=== PATIENT | female | born 1995 | race Caucasian/White ===

== ENCOUNTER 2021-10-23 14:56 | Emergency (ER) | payer BC, SELFPAY ==
[~2021-10-23] VITALS: Ht 162.6 cm; Wt 100.0 kg
[~2021-10-23 14:56] MED LIST: CYCL-1 PO
[2021-10-23] MEDS ORDERED: ondansetron 4mg rapidly disintigrating tab PO ONE (16:10)
[2021-10-23 16:38] VITALS: BP 129/83
[2021-10-23 16:46] LABS: BASOPHILS % (AUTO) 0.4 % (0-1); EOSINOPHILS % (AUTO) 0.5 % (0-6); HEMATOCRIT 44.8 % (35.0-45.0); HEMOGLOBIN 15.2 g/dl (12.0-16.0); LYMPHOCYTES # (AUTO) 1.6 X10'3 (1.1-4.8); LYMPHOCYTES % (AUTO) 20.3 % (21-51); MEAN CORPUSCULAR HEMOGLOBIN 30.8 PG (27.0-31.0); MEAN CORPUSCULAR VOLUME 90.6 FL (78-98); MEAN PLATELET VOLUME 8.7 FL (7.4-10.4); MONOCYTES # (AUTO) 0.6 X10'3 (0-0.9); NEUTROPHILS # (AUTO) 5.7 X10'3 (1.8-7.7); NEUTROPHILS % (AUTO) 71.8 % (42-75); PLATELET COUNT 279 X10'3 (140-440); RED BLOOD COUNT 4.94 X10'6 (4.20-5.60); RED CELL DISTRIBUTION WIDTH 13.1 % (11.5-14.5); WHITE BLOOD COUNT 7.9 X10'3 (4.5-11.0)
[2021-10-23 16:59] LABS: ALANINE AMINOTRANSFERASE 32 U/L (12-78); ALBUMIN 3.8 G/DL (3.4-5.0); ALBUMIN/GLOBULIN RATIO 0.9 (1.1-1.5); ALKALINE PHOSPHATASE 79 IU/L (46-116); ANION GAP 10 (8-16); ASPARTATE AMINO TRANSFERASE 17 U/L (10-37); BILIRUBIN,TOTAL 0.5 MG/DL (0.1-1.0); BLOOD UREA NITROGEN 7 MG/DL (7-18); BUN/CREATININE RATIO 9.1 (6.6-38.0); CALCIUM 8.9 MG/DL (8.5-10.1); CHLORIDE 104 MMOL/L (99-107); CREATININE 0.77 MG/DL (0.40-0.90); GLUCOSE 105 MG/DL (70-104); POTASSIUM 3.8 MMOL/L (3.5-5.1); SODIUM 137 MMOL/L (135-145); eGFR > 90 ML/MIN
[2021-10-23] MEDS ORDERED: acetaminophen 325mg tablet PO ONE (17:10)
[2021-10-23] MEDS ORDERED: ONDA4TAB12 PO (17:44)
--- NOTE | 2021-10-23 18:22 | NUR ---
Pt given and understands d/c instructions. Ambulatory with a steady gait.
== END 2021-10-23 18:22 | disposition home or self-care (01) ==
LOC: ER 14:57
DX: R11.2 Nausea with vomiting, unspecified (principal); Z20.822 Contact with and (suspected) exposure to COVID-19; R51.9 Headache, unspecified; R10.84 Generalized abdominal pain; Z79.899 Other long term (current) drug therapy
CPT/HCPCS: 36415; 80053; 85025; 87635; 99283; C9803

== ENCOUNTER 2021-10-26 13:37 | Emergency (ER) | payer BC ==
[~2021-10-26] VITALS: Ht 162.6 cm; Wt 89.0 kg
[~2021-10-26 13:37] MED LIST changes: +ONDA4TAB12 PO
[2021-10-26 13:49] VITALS: BP 122/75
[2021-10-26 14:14] LABS: CLARITY,URINE SLIGHTLY CLOUDY (Clear); COLOR,URINE YELLOW (Yellow); GLUCOSE, URINE NEGATIVE (Neg); KETONES,URINE NEGATIVE (Neg); LEUKOCYTE ESTERASE ,URINE MODERATE (Neg); NITRITES, URINE NEGATIVE (Neg); OCCULT BLOOD,URINE NEGATIVE (Neg); PH,URINE 8.5 (4.8-8.0); PROTEIN,URINE NEGATIVE (Neg)
[2021-10-26 14:15] LABS: URINE HCG NEGATIVE (NEG)
[2021-10-26 14:17] LABS: UA COLLECTION TYPE CLN CATCH MIDSTREAM
[2021-10-26 14:21] LABS: BACTERIA,URINE 4+ /HPF (Neg); RBC,URINE 0-2 /HPF (0-2); SQUAMOUS EPITHELIAL CELL,UR MANY /LPF (FEW); WBC,URINE 30-50 /HPF (0-4)
[2021-10-26 14:22] LABS: MUCUS STRANDS FEW /LPF (Neg)
[2021-10-26 16:54] LABS: CLARITY,URINE SLIGHTLY CLOUDY (Clear); COLOR,URINE YELLOW (Yellow); GLUCOSE, URINE NEGATIVE (Neg); KETONES,URINE NEGATIVE (Neg); LEUKOCYTE ESTERASE ,URINE TRACE (Neg); NITRITES, URINE NEGATIVE (Neg); OCCULT BLOOD,URINE NEGATIVE (Neg); PH,URINE 6.5 (4.8-8.0); PROTEIN,URINE NEGATIVE (Neg); UROBILINOGEN,URINE 0.2 E.U/dL (0.2-1.0)
[2021-10-26 16:58] LABS: UA COLLECTION TYPE CLN CATCH MIDSTREAM
[2021-10-26 16:59] LABS: MUCUS STRANDS MANY /LPF (Neg); SQUAMOUS EPITHELIAL CELL,UR MANY /LPF (FEW)
[2021-10-26 17:00] LABS: BACTERIA,URINE 2+ /HPF (Neg)
[2021-10-26 17:04] LABS: RBC,URINE 0-2 /HPF (0-2); WBC,URINE 0-4 /HPF (0-4)
--- NOTE | 2021-10-26 17:59 | NUR ---
US TECH AT BEDSIDE.
== END 2021-10-26 18:31 | disposition home or self-care (01) ==
LOC: ER 13:38
DX: R10.9 Unspecified abdominal pain (principal); R51.9 Headache, unspecified; M54.59 Other low back pain
CPT/HCPCS: 76856; 81001; 81025; 93976; 99284

== ENCOUNTER 2021-11-09 10:11 | Emergency (ER) | payer BC ==
[~2021-11-09] VITALS: Ht 162.6 cm; Wt 72.7 kg
[2021-11-09 11:57] LABS: BASOPHILS % (AUTO) 0.2 % (0-1); EOSINOPHILS % (AUTO) 0.7 % (0-6); HEMOGLOBIN 14.4 g/dl (12.0-16.0); LYMPHOCYTES # (AUTO) 1.4 X10'3 (1.1-4.8); LYMPHOCYTES % (AUTO) 26.3 % (21-51); MEAN CORPUSCULAR HEMOGLOBIN 30.2 PG (27.0-31.0); MEAN CORPUSCULAR HGB CONC 33.5 g/dL (33.0-36.5); MEAN CORPUSCULAR VOLUME 90.2 FL (78-98); MEAN PLATELET VOLUME 8.9 FL (7.4-10.4); MONOCYTES # (AUTO) 0.3 X10'3 (0-0.9); MONOCYTES % (AUTO) 6.2 % (2-12); NEUTROPHILS # (AUTO) 3.5 X10'3 (1.8-7.7); NEUTROPHILS % (AUTO) 66.6 % (42-75); PLATELET COUNT 280 X10'3 (140-440); RED BLOOD COUNT 4.77 X10'6 (4.20-5.60); WHITE BLOOD COUNT 5.2 X10'3 (4.5-11.0)
[2021-11-09 11:58] VITALS: BP 115/83
[2021-11-09 12:01] LABS: ALANINE AMINOTRANSFERASE 33 U/L (12-78); ALBUMIN/GLOBULIN RATIO 1.2 (1.1-1.5); ALKALINE PHOSPHATASE 75 IU/L (46-116); ANION GAP 7 (8-16); ASPARTATE AMINO TRANSFERASE 20 U/L (10-37); BILIRUBIN,TOTAL 0.3 MG/DL (0.1-1.0); BLOOD UREA NITROGEN 9 MG/DL (7-18); BUN/CREATININE RATIO 12.5 (6.6-38.0); CALCIUM 8.5 MG/DL (8.5-10.1); CHLORIDE 108 MMOL/L (99-107); CREATININE 0.72 MG/DL (0.40-0.90); GLUCOSE 83 MG/DL (70-104); POTASSIUM 3.7 MMOL/L (3.5-5.1); SODIUM 140 MMOL/L (135-145); TOTAL CARBON DIOXIDE 24.9 MMOL/L (24-32); TOTAL PROTEIN 7.4 G/DL (6.4-8.2); eGFR > 90 ML/MIN
[2021-11-09] MEDS ORDERED: DICY10CA88 PO (13:29)
[2021-11-09] MEDS ORDERED: ONDA4TAB12 PO (13:29)
[2021-11-09] MEDS ORDERED: OMEP40CA21 PO (13:29)
[2021-11-09] MEDS ORDERED: CEPH-585 PO (13:32)
[2021-11-09 13:38] LABS: CLARITY,URINE CLOUDY (Clear); COLOR,URINE YELLOW (Yellow); GLUCOSE, URINE NEGATIVE (Neg); KETONES,URINE 15 mg/dl (Neg); LEUKOCYTE ESTERASE ,URINE NEGATIVE (Neg); NITRITES, URINE NEGATIVE (Neg); OCCULT BLOOD,URINE NEGATIVE (Neg); PH,URINE 5.5 (4.8-8.0); PROTEIN,URINE NEGATIVE (Neg); URINE HCG NEGATIVE (NEG); UROBILINOGEN,URINE 0.2 E.U/dL (0.2-1.0)
[2021-11-09 13:40] LABS: UA COLLECTION TYPE NON-SPECIFIED
[2021-11-09 13:46] LABS: MUCUS STRANDS MANY /LPF (Neg); SQUAMOUS EPITHELIAL CELL,UR MANY /LPF (FEW)
[2021-11-09 13:48] LABS: BACTERIA,URINE 2+ /HPF (Neg); CAL OXALATE CRYSTALS FEW /HPF (NEGATIVE)
== END 2021-11-09 13:55 | disposition home or self-care (01) ==
LOC: ER 10:12
DX: N39.0 Urinary tract infection, site not specified (principal); R10.84 Generalized abdominal pain
CPT/HCPCS: 36415; 80053; 81001; 81025; 85025; 99283

== ENCOUNTER 2021-11-13 14:03 | Emergency (ER) | payer BC ==
[~2021-11-13] VITALS: Ht 162.6 cm; Wt 79.8 kg
[~2021-11-13 14:03] MED LIST changes: +CEPH-585 PO; +DICY10CA88 PO; +OMEP40CA21 PO
[2021-11-13 14:05] VITALS: BP 136/74
[2021-11-13] MEDS ORDERED: ONDA4TAB12 PO (14:34)
== END 2021-11-13 14:44 | disposition home or self-care (01) ==
LOC: ER 14:03
DX: R10.84 Generalized abdominal pain (principal); R11.0 Nausea; R30.0 Dysuria; Z79.2 Long term (current) use of antibiotics; Z79.899 Other long term (current) drug therapy
CPT/HCPCS: 99283

== ENCOUNTER 2022-09-12 08:54 | Emergency (ER) | payer BC, SELFPAY ==
[~2022-09-12] VITALS: Ht 162.6 cm; Wt 68.0 kg
[~2022-09-12 08:54] MED LIST changes: -DICY10CA88 PO; +MELO-100 PO; -OMEP40CA21 PO
[2022-09-12 09:18] VITALS: BP 124/84
[2022-09-12] MEDS ORDERED: CEPH250T PO (10:57)
== END 2022-09-12 11:18 | disposition home or self-care (01) ==
LOC: ER 08:55
DX: J06.9 Acute upper respiratory infection, unspecified (principal); Z20.822 Contact with and (suspected) exposure to COVID-19
CPT/HCPCS: 87502; 87503; 87635; 99283; C9803

== ENCOUNTER 2023-01-26 09:15 | Emergency (ER) | payer BC, SELFPAY ==
[~2023-01-26] VITALS: Ht 162.6 cm; Wt 82.0 kg
[~2023-01-26 09:15] MED LIST changes: -CEPH-585 PO
[2023-01-26 09:23] VITALS: BP 127/95
[2023-01-26] MEDS ORDERED: NAPR-56 PO (09:29)
[2023-01-26] MEDS ORDERED: PENI250T2 PO (09:29)
== END 2023-01-26 09:38 | disposition home or self-care (01) ==
LOC: ER 09:15
DX: K08.89 Other specified disorders of teeth and supporting structures (principal); Z79.899 Other long term (current) drug therapy
CPT/HCPCS: 99283